=== PATIENT | female | born 1950 | race Caucasian/White ===

== ENCOUNTER → 2020-07-29 | Outpatient (CLI) | payer MEDICARE ==
[~2020-07-29] MED LIST: ACYCLOVIR400 MG PO; ALDACTONE 25MG25 MG PO; AMLODIPINE BESYL5 MG PO; LEVOFLOXACIN750 MG PO; LIPITOR TAB 1010 MG PO; LOPRESSOR50 MG PO; MELOXICAM7.5 MG PO; MYCOSTATIN100000 UTS PO; PROZAC20 MG PO
== END ==
LOC: KOH-I 15:44
DX: M25.561 Pain in right knee (principal); M13.861 Other specified arthritis, right knee
CPT/HCPCS: 73564

== ENCOUNTER → 2020-08-28 | Outpatient (CLI) | payer MEDICARE | LOC: EXRD 10:44 | DX: M81.0 Age-related osteoporosis without current pathological fracture (principal); M85.89 Other specified disorders of bone density and structure, multiple sites | CPT/HCPCS: 77080 ==

== ENCOUNTER → 2020-09-03 | Outpatient (CLI) | payer MEDICARE | LOC: US 10:20 | DX: M81.0 Age-related osteoporosis without current pathological fracture (principal); R55 Syncope and collapse; G44.89 Other headache syndrome; E04.2 Nontoxic multinodular goiter; I27.20 Pulmonary hypertension, unspecified | CPT/HCPCS: ECHO; 93306; 93880 ==

== ENCOUNTER → 2020-09-18 | Outpatient (CLI) | payer MEDICARE ==
[2020-09-18 10:34] LABS: HEMOGLOBIN 12.6 gm/dl (12.3-15.3); RED BLOOD COUNT 4.5 M/UL (4.00-5.10); WHITE BLOOD COUNT 7.3 K/UL (4.5-11.0)
== END ==
LOC: CT 09-11 09:30
PROVIDERS: Nurse Practitioner Family
DX: N28.89 Other specified disorders of kidney and ureter (principal); E04.1 Nontoxic single thyroid nodule; Z85.528 Personal history of other malignant neoplasm of kidney; Z90.5 Acquired absence of kidney
CPT/HCPCS: 36415; 71250; 80048; 85025

== ENCOUNTER → 2020-10-16 | Outpatient (CLI) | payer MEDICARE | LOC: EXRD 09-30 15:00 | DX: E04.2 Nontoxic multinodular goiter (principal) | CPT/HCPCS: 76536 ==

== ENCOUNTER → 2020-12-09 | Outpatient (CLI) | payer MEDICARE | LOC: KOH-I 12-08 13:30 | DX: N28.89 Other specified disorders of kidney and ureter (principal); Z85.528 Personal history of other malignant neoplasm of kidney; Z90.5 Acquired absence of kidney | CPT/HCPCS: 74150 ==

== ENCOUNTER → 2021-05-04 | Outpatient (CLI) | payer MEDICARE | LOC: CT 08:00 | DX: Z08 Encounter for follow-up examination after completed treatment for malignant neoplasm (principal); Z85.528 Personal history of other malignant neoplasm of kidney; Z90.5 Acquired absence of kidney | CPT/HCPCS: 36415; 71260; 82565; Q9967 ==

== ENCOUNTER → 2021-08-03 | Outpatient (CLI) | payer MEDICARE | LOC: US 07-17 08:30 | DX: R79.89 Other specified abnormal findings of blood chemistry (principal) | CPT/HCPCS: 76705 ==

== ENCOUNTER → 2021-10-27 | Outpatient (CLI) | payer MEDICARE | LOC: LAB 14:13 | DX: E04.2 Nontoxic multinodular goiter (principal) | CPT/HCPCS: 36415; 82310; 82330; 83970; 84443 ==

== ENCOUNTER → 2021-11-18 | Outpatient (CLI) | payer MEDICARE | LOC: CT 12:43 | DX: D61.818 Other pancytopenia (principal); Z90.5 Acquired absence of kidney; N28.89 Other specified disorders of kidney and ureter | CPT/HCPCS: 70491; 71260; Q9967 ==